=== PATIENT | male | born 1935 | race Caucasian/White ===

== ENCOUNTER 2021-03-29 12:59 | Emergency (ER) | payer MEDICARE, OTHER ==
[~2021-03-29 12:59] MED LIST: ASPIR-LOW81 MG PO; BYSTOLIC10 MG PO; CRESTOR10 MG PO; FOLIC ACID 1 MG1 MG PO; IMDUR ER TAB 6060 MG PO; LOPRESSOR50 MG PO; NITROSTAT 0.40.4 MG SL; NORVASC 5 MG TAB5 MG PO; PLAVIX 75 MG TA75 MG PO; PREDNISONE20 MG PO; PROAIR HFA8.5 GM INH; SYNTHROID88 MCG PO; VALSARTAN320 MG PO; VIBRAMYCIN100 MG PO; ZYLOPRIM 100 M100 MG PO
[2021-03-29] MEDS ORDERED: HYDROCODON-ACE1 EAC4 PO (17:18)
== END 2021-03-29 16:22 | disposition home or self-care (01) ==
LOC: ER1 12:59
DX: S22.088A Other fracture of T11-T12 vertebra, initial encounter for closed fracture (principal); J44.9 Chronic obstructive pulmonary disease, unspecified; I10 Essential (primary) hypertension; I25.10 Atherosclerotic heart disease of native coronary artery without angina pectoris; W19.XXXA Unspecified fall, initial encounter
CPT/HCPCS: 72131; 99284

== ENCOUNTER → 2021-05-18 | Outpatient (CLI) | payer MEDICARE, OTHER ==
[~2021-05-18] MED LIST changes: +HYDROCODON-ACE1 EAC4 PO
== END ==
LOC: MRI 05-13 10:00
DX: M51.16 Intervertebral disc disorders with radiculopathy, lumbar region (principal); M48.54XA Collapsed vertebra, not elsewhere classified, thoracic region, initial encounter for fracture; M48.061 Spinal stenosis, lumbar region without neurogenic claudication
CPT/HCPCS: 72146; 72148

== ENCOUNTER 2021-06-16 01:32 | Inpatient (IN) | payer MEDICARE, OTHER ==
[~2021-06-16] VITALS: Ht 167.6 cm; Wt 64.5 kg
[~2021-06-16 01:32] MED LIST changes: -CRESTOR10 MG PO; -NORVASC 5 MG TAB5 MG PO; -PLAVIX 75 MG TA75 MG PO; -SYNTHROID88 MCG PO
[2021-06-16 02:19] LABS: HEMOGLOBIN 9.4 gm/dl (14.0-17.5); RED BLOOD COUNT 3.31 M/UL (4.20-5.50); WHITE BLOOD COUNT 9.9 K/UL (4.5-11.0)
[2021-06-16 03:28] LABS: BUN/CREATININE RATIO 33 (0-10)
[2021-06-16] MEDS ORDERED: IPRAT-ALBUT 0.5-3 ML INH (08:42)
[2021-06-16] MEDS ORDERED: ACETAMINOPHEN500 MG PO (08:44)
[2021-06-16] MEDS ORDERED: GAS-X125 M1 PO (08:44)
[2021-06-16] MEDS ORDERED: FERROUS SULFAT325 MG PO (08:46)
[2021-06-16] MEDS ORDERED: PREDNISONE 5 MG5 MG PO (08:47)
[2021-06-16] MEDS ORDERED: VALIUM 5 MG TAB5 MG PO (08:47)
[2021-06-16] MEDS ORDERED: FLOMAX0.4 MG PO (08:48)
[2021-06-16] MEDS ORDERED: VALSARTAN-HCTZ1 EACH PO (08:48)
[2021-06-16] MEDS ORDERED: LEXAPRO10 MG PO (08:48)
[2021-06-16] MEDS ORDERED: PLAVIX 75 MG TA75 MG PO (10:44)
[2021-06-16] MEDS ORDERED: NORVASC10 MG PO (15:20)
[2021-06-16] MEDS ORDERED: CRESTOR10 MG PO (15:21)
[2021-06-16] MEDS ORDERED: SYNTHROID100 MCG PO (15:21)
--- NOTE | 2021-06-16 19:00 | NUR ---
PT VERY WEAK FROM STANDING TO VOID EVERY [address] BECERRIL AWARE 18 FR FRANCES INSERTED WITH 400ML YELLOW URINE IN DRAINAGE BAG PT TOLERATED WELL.
[2021-06-17 06:14] LABS: RED BLOOD COUNT 3.15 M/UL (4.20-5.50)
[2021-06-17 06:17] LABS: WHITE BLOOD COUNT 4.4 K/UL (4.5-11.0)
[2021-06-17 06:49] LABS: BUN/CREATININE RATIO 31 (0-10)
--- NOTE | 2021-06-17 14:40 | NUR ---
1215:RN SPOKE WITH DR BECERRIL, REGARDING PREVIOUSLY ORDERED ABG. NEW ORDERS NOTED. 1223: PATIENT PLACED ON BIPAP WITH THE FOLLOWING SETTINGS: /6; 50% FIO2; RATE OF 18. PATIENT SPO2 NOTED AT 96%. PCU BED REQUESTED. 1440: AWAITING F/U ABG RESULTS, PATIENT HAS TOLERATED BIPAP WELL. SPO2 96%.
[2021-06-18 02:53] LABS: BUN/CREATININE RATIO 37 (0-10)
[2021-06-18 02:54] LABS: HEMOGLOBIN 9.3 gm/dl (14.0-17.5); RED BLOOD COUNT 3.29 M/UL (4.20-5.50); WHITE BLOOD COUNT 4.5 K/UL (4.5-11.0)
[2021-06-19 03:21] LABS: BUN/CREATININE RATIO 42 (0-10)
[2021-06-20 07:26] LABS: BUN/CREATININE RATIO 39 (0-10)
[2021-06-21] MEDS ORDERED: POTASSIUM CHLO20 ME1 PO (11:22)
[2021-06-21] MEDS ORDERED: LASIX20 MG PO ×2 (11:22→11:50)
[2021-06-21] MEDS ORDERED: BUDESONIDE0.5 MG/2 M NEB (11:22)
[2021-06-21] MEDS ORDERED: LOPRESSOR 25 MG25 MG PO (11:30)
[2021-06-21] MEDS ORDERED: AMLODIPINE BESYL5 MG PO (11:42)
[2021-06-21] MEDS ORDERED: NUTRITIONAL DR237 ML PO (11:42)
[2021-06-21] MEDS ORDERED: THERA-M CAPLET1 EACH PO (11:42)
[2021-06-21] MEDS ORDERED: POTASSIUM CHLOR8 ME1 PO (11:50)
--- NOTE | 2021-06-22 16:11 | NUR ---
palpated bladder tender to touch , bladder scan with 500 cc urine noted. reported to dr. lancaster and order received
--- NOTE | 2021-06-22 17:07 | NUR ---
report given to issac carson [facility]
--- NOTE | 2021-06-22 20:35 | NUR ---
EMS LEFT WITH PT NOTED IV OUT F/C TO A LEG BAG NOTED PER [employer] [facility] [facility] AT BEDSIDE
== END 2021-06-22 20:44 | disposition home or self-care (01) | DRG 196 ==
LOC: ER1 01:32 → M/S 05:41 → CDU 05:41 → MED SURG 4 07:40 → M/S 07:42 → PROG CARE 06-17 15:09 → M/S 06-19 00:26
PROVIDERS: Internal Medicine; Student in an Organized Health Care Education/Training Program; ADMIT Internal Medicine
PROC: 5A09357 Assistance with Respiratory Ventilation, Less than 24 Consecutive Hours, Continuous Positive Airway Pressure (ICD-10-PCS; principal; 2021-06-16)
PROC: 5A0935A Assistance with Respiratory Ventilation, Less than 24 Consecutive Hours, High Flow/Velocity Cannula (ICD-10-PCS; 2021-06-16)
PROC: 5A0945A Assistance with Respiratory Ventilation, 24-96 Consecutive Hours, High Flow/Velocity Cannula (ICD-10-PCS; 2021-06-18)
PROC: 5A09357 Assistance with Respiratory Ventilation, Less than 24 Consecutive Hours, Continuous Positive Airway Pressure (ICD-10-PCS; 2021-06-19)
PROC: 5A0935A Assistance with Respiratory Ventilation, Less than 24 Consecutive Hours, High Flow/Velocity Cannula (ICD-10-PCS; 2021-06-20)
PROC: 5A09357 Assistance with Respiratory Ventilation, Less than 24 Consecutive Hours, Continuous Positive Airway Pressure (ICD-10-PCS; 2021-06-21)
PROC: 5A0945A Assistance with Respiratory Ventilation, 24-96 Consecutive Hours, High Flow/Velocity Cannula (ICD-10-PCS; 2021-06-21)
DX: J60 Coalworker's pneumoconiosis (principal); J96.21 Acute and chronic respiratory failure with hypoxia; J96.22 Acute and chronic respiratory failure with hypercapnia; I50.33 Acute on chronic diastolic (congestive) heart failure; G93.41 Metabolic encephalopathy; R04.2 Hemoptysis; N17.9 Acute kidney failure, unspecified; E87.2 Acidosis; E87.1 Hypo-osmolality and hyponatremia; D69.41 Evans syndrome; J18.9 Pneumonia, unspecified organism; J84.10 Pulmonary fibrosis, unspecified; J43.9 Emphysema, unspecified; I27.20 Pulmonary hypertension, unspecified; I48.91 Unspecified atrial fibrillation; R31.9 Hematuria, unspecified; R91.8 Other nonspecific abnormal finding of lung field; D64.9 Anemia, unspecified; E83.42 Hypomagnesemia; I25.10 Atherosclerotic heart disease of native coronary artery without angina pectoris; M10.9 Gout, unspecified; R32 Unspecified urinary incontinence; Z66 Do not resuscitate; E07.9 Disorder of thyroid, unspecified; N40.0 Benign prostatic hyperplasia without lower urinary tract symptoms; Z87.891 Personal history of nicotine dependence; Z98.890 Other specified postprocedural states; Z99.81 Dependence on supplemental oxygen; Z95.5 Presence of coronary angioplasty implant and graft; E03.9 Hypothyroidism, unspecified; Z82.49 Family history of ischemic heart disease and other diseases of the circulatory system; Z88.2 Allergy status to sulfonamides; Z88.6 Allergy status to analgesic agent; Z79.82 Long term (current) use of aspirin; Z79.899 Other long term (current) drug therapy; Z79.02 Long term (current) use of antithrombotics/antiplatelets
CPT/HCPCS: ECHO; 36415; 36600; 71045; 80048; 80053; 81001; 82550; 82553; 82803; 83605; 83735; 83880; 84439; 84443; 84484; 85025; 85027; 93005; 93306; 94640; 94660; 94760; 96374; 97110-GP-CQ; 97116; 97116-GP-CQ; 97161; 99285; J1335; J1650; J1940; J3475